=== PATIENT | female | born 1935 | race Caucasian/White ===

== ENCOUNTER 2017-10-07 20:28 | Emergency (ER) | payer MEDICARE, BC ==
[2017-10-07 20:47] VITALS: BP 184/77; PULSE 83; RESP 18; TEMP 97.9
--- NOTE | 2017-10-07 21:12 | ED ---
General Adult HPI - General Chief complaint: GI Bleed Stated complaint: Rectal Bleeding Time Seen by Provider: 10/07/17 20:53 Source: patient, family, RN notes reviewed Mode of arrival: ambulatory Limitations: no limitations - History of Present Illness Initial comments: 82-year-old female presents for evaluation of rectal bleeding. Patient was in the shower, noticed some bright red blood several hours prior to presentation. She has remote history of colitis proximally 20 years ago. Denies any abdominal pain. She has had normal bowel movements today. Bleeding was spontaneous. Denies any pain complaints. Patient is not on anticoagulants. - Related Data Home Medications Medication Instructions Recorded Confirmed Levothyroxine Sodium [Synthroid] 150 mcg PO MOWETHFR 10/07/17 10/07/17 Ranitidine HCl [Zantac] 150 mg PO BID 10/07/17 10/07/17 Previous Rx's Medication Instructions Recorded Phenyleph/Mineral Oil/Petrolat 1 applic RECTAL BID #30 gm 10/07/17 [Preparation H Ointment] Polyethylene Glycol 3350 [Miralax] 17 gm PO DAILY #527 gm 10/07/17 Allergies Allergy/AdvReac Type Severity Reaction Status Date / Time No Known Allergies Allergy Verified 10/07/17 21:15 Review of Systems ROS Statement: Those systems with pertinent positive or pertinent negative responses have been documented in the HPI. ROS Other: All systems not noted in ROS Statement are negative. Past Medical History Past Medical History: GERD/Reflux, Hypertension, Thyroid Disorder Additional Past Medical History / Comment(s): colitis History of Any Multi-Drug Resistant Organisms: None Reported Past Surgical History: Cholecystectomy Past Psychological History: No Psychological Hx Reported Smoking Status: Never smoker Past Alcohol Use History: None Reported Past Drug Use History: None Reported General Exam Limitations: no limitations General appearance: alert, in no apparent distress Head exam: Present: atraumatic, normocephalic Eye exam: Present: normal appearance, PERRL ENT exam: Present: normal exam Neck exam: Present: normal inspection. Absent: tenderness, meningismus Respiratory exam: Present: normal lung sounds bilaterally. Absent: respiratory distress, wheezes Cardiovascular Exam: Present: regular rate, normal rhythm GI/Abdominal exam: Present: soft. Absent: distended, tenderness, guarding Rectal exam: Present: hemorrhoids (1 cm internal hemorrhoid at 9:00, no active bleeding). Absent: black stool, bloody stool Extremities exam: Present: normal inspection, full ROM. Absent: tenderness Back exam: Present: normal inspection, full ROM. Absent: tenderness Neurological exam: Present: alert, oriented X3. Absent: CN II-XII intact Psychiatric exam: Present: normal affect, normal mood Skin exam: Present: warm, dry, intact Course Vital Signs 10/07/17 10/07/17 20:42 21:10 Temperature 97.9 F Pulse Rate 83 Respiratory 18 Rate Blood Pressure 184/77 O2 Sat by Pulse 97 98 Oximetry Medical Decision Making - Medical Decision Making 82-year-old female presenting with bright red rectal bleeding. Patient's vital signs are stable, she is well-appearing, abdomen soft nontender nondistended, on rectal exam shows a 1 cm internal hemorrhoid at 9:00, no active bleeding. Surface is friable. She will be prescribed usual treatment. She will follow- up with her primary care physician. Disposition Clinical Impression: Hemorrhoids Disposition: HOME SELF-CARE Condition: Good Instructions: Hemorrhoids (ED) Prescriptions: Phenyleph/Mineral Oil/Petrolat [Preparation H Ointment] 1 applic RECTAL BID #30 gm Polyethylene Glycol 3350 [Miralax] 17 gm PO DAILY #527 gm Referrals: Lj Sandra MD [Primary Care Provider] - 1-2 days Time of Disposition: 21:11
[2017-10-07] MEDS ORDERED: ACETAMINOPHEN TAB 500 MG TAB PO STA (21:18)
== END 2017-10-07 21:20 | disposition home or self-care (01) ==
LOC: EC 20:28
DX: K64.8 Other hemorrhoids (principal); K21.9 Gastro-esophageal reflux disease without esophagitis; E07.9 Disorder of thyroid, unspecified; Z79.899 Other long term (current) drug therapy; Z90.49 Acquired absence of other specified parts of digestive tract
CPT/HCPCS: 99284

== ENCOUNTER 2018-01-23 20:27 | Emergency (ER) | payer MEDICARE, BC ==
[2018-01-23 20:41] VITALS: RESP 16
[2018-01-23] MEDS ORDERED: KETOROLAC 30 MG/ML 1 ML VIAL IVP STA (21:42)
[2018-01-23] MEDS ORDERED: LIDOCAINE VISCOUS 2% 15 ML CUP MUCOUS MEM STA (21:42)
--- NOTE | 2018-01-23 21:51 | ED ---
General Adult HPI - General Chief complaint: Abdominal Pain Stated complaint: hemmeroids/no bowel movement Time Seen by Provider: 01/23/18 21:23 Source: patient Mode of arrival: ambulatory Limitations: no limitations - History of Present Illness Initial comments: This patient is an 82-year-old woman who presents with complaint that she is having a flareup of hemorrhoids and this is leading her to have difficulty passing stool. Patient states that she has long intermittent history of hemorrhoids, and they last flared up with some bleeding in September. She states they seem to have recurred probably little over a week ago. She states that this led her to try to not have bowel movements and she has been feeling constipated over the past 5 days. She did pass some very liquid stool here but states she still has urge to defecate but there is pain if she attempts to. No bleeding. No abdominal pain. -: days(s) Quality: sharp Consistency: intermittent Improves with: none Worsens with: other (Bowel movement) Associated Symptoms: denies other symptoms Treatments Prior to Arrival: none - Related Data Home Medications Medication Instructions Recorded Confirmed Ranitidine HCl [Zantac] 150 mg PO BID 10/07/17 01/23/18 Albuterol Sulfate [Proventil Hfa] 1 - 2 puff INHALATION RT-Q6H PRN 01/23/1804/05 Docusate [Colace] 100 mg PO DAILY 01/23/18 01/23/18 Hydrocortisone Pr Cream 1 applic RECTAL BID PRN 01/23/18 01/23/18 [Proctosol-Hc 2.5%] Levothyroxine Sodium [Synthroid] 25 mcg PO MOWETHFR 01/23/18 01/23/18 Magnesium Hydroxide [Milk of 2,400 mg PO ONCE PRN 01/23/18 01/23/18 Magnesia Concentrate] Rosuvastatin Calcium [Crestor] 5 mg PO DAILY 01/23/18 01/23/18 Allergies Allergy/AdvReac Type Severity Reaction Status Date / Time No Known Allergies Allergy Verified 01/23/18 21:05 Review of Systems ROS Statement: Those systems with pertinent positive or pertinent negative responses have been documented in the HPI. ROS Other: All systems not noted in ROS Statement are negative. Constitutional: Denies: fever, chills Respiratory: Denies: cough, dyspnea Cardiovascular: Denies: chest pain, palpitations, edema Gastrointestinal: Reports: diarrhea, constipation, other (Hemorrhoids). Denies : abdominal pain, nausea, vomiting Genitourinary: Denies: dysuria, hematuria Musculoskeletal: Denies: back pain Skin: Denies: rash Neurological: Denies: headache, weakness, numbness Hematological/Lymphatic: Denies: easy bleeding Past Medical History Past Medical History: GERD/Reflux, Hypertension, Thyroid Disorder Additional Past Medical History / Comment(s): colitis History of Any Multi-Drug Resistant Organisms: None Reported Past Surgical History: Cholecystectomy Past Psychological History: No Psychological Hx Reported Smoking Status: Never smoker Past Alcohol Use History: None Reported Past Drug Use History: None Reported General Exam Limitations: no limitations General appearance: alert, in no apparent distress Head exam: Present: atraumatic, normocephalic Eye exam: Present: normal appearance ENT exam: Present: normal oropharynx Respiratory exam: Present: normal lung sounds bilaterally. Absent: respiratory distress, wheezes, rales, rhonchi, stridor Cardiovascular Exam: Present: regular rate, normal rhythm, normal heart sounds. Absent: systolic murmur, diastolic murmur, rubs, gallop GI/Abdominal exam: Present: soft. Absent: distended, tenderness, guarding, rebound, rigid, mass, hernia Rectal exam: Present: fecal impaction, tenderness, other (Patient has one external hemorrhoid, but she does have internal hemorrhoids and then there is fecal impaction). Absent: normal inspection, black stool, bloody stool Extremities exam: Absent: pedal edema, calf tenderness Back exam: Present: normal inspection. Absent: CVA tenderness (R), CVA tenderness (L) Skin exam: Present: warm, dry, intact, normal color. Absent: rash Course Vital Signs 01/23/18 20:37 Temperature 98.6 F Pulse Rate 98 Respiratory 16 Rate Blood Pressure 119/58 O2 Sat by Pulse 96 Oximetry Disposition Clinical Impression: Hemorrhoids, Constipation Disposition: HOME SELF-CARE Condition: Good Instructions: Hemorrhoids (ED), Constipation (ED) Is patient prescribed a controlled substance at d/c from ED?: No Referrals: Lj Sandra MD [Primary Care Provider] - 1-2 days
[2018-01-23] MEDS ORDERED: MAGNESIUM CITRATE 296 ML BOTTLE PO ONE (23:09)
[2018-01-23 23:25] VITALS: BP 122/60; PULSE 88; TEMP 99.8
== END 2018-01-23 23:26 | disposition home or self-care (01) ==
LOC: EC 20:27
DX: K64.8 Other hemorrhoids (principal); K64.4 Residual hemorrhoidal skin tags; K59.00 Constipation, unspecified; K21.9 Gastro-esophageal reflux disease without esophagitis; I10 Essential (primary) hypertension; E07.9 Disorder of thyroid, unspecified; Z90.49 Acquired absence of other specified parts of digestive tract; Z79.899 Other long term (current) drug therapy
CPT/HCPCS: 99283; 96374; J1885

== ENCOUNTER → 2018-05-09 | Day surgery (SDC) | payer MEDICARE, BC ==
[2018-05-05 08:43] VITALS: BMI 27.9
[~2018-05-09] MED LIST: LACTATED RINGERS 1,000 ML IV SCH; LIDOCAINE 1% 20 ML VIAL (10MG/ML) FOR IV START INTRADERMA PRN; LIDOCAINE 1% INJ 10MG/ML (20 ML MDV) ONE; MIDAZOLAM 2 MG/2 ML VIAL IV PRN; NALOXONE 0.4 MG/ML 1 ML VIAL IV PRN; PROPOFOL 10 MG/ML 20 ML VIAL IV ONE
[2018-05-09 07:00] VITALS: TEMP 98.3
--- NOTE | 2018-05-09 08:13 | P.OP ---
Date of Procedure: 05/09/18 Preoperative Diagnosis: Diarrhea and constipation Postoperative Diagnosis: Diarrhea and constipation Diverticulosis Internal hemorrhoids Procedure(s) Performed: Colonoscopy Surgeon: Nehemias Victoria Pathology: none sent Condition: stable Disposition: same day Indications for Procedure: 82-year-old female presented to the surgery clinic with recent bowel changes including loose stool and constipation. Her last colonoscopy was 20 years ago. She presents today for colonoscopy. Operative Findings: Diverticulosis scattered throughout the colon Internal hemorrhoids Description of Procedure: The patient was brought into the endoscopy suite. She was placed in left lateral cutis position and adequate sedation was achieved using conscious sedation. A digital rectal exam was performed and internal hemorrhoids were palpated. An endoscope was then placed in the rectum and advanced to the cecum as identified by landmarks including the appendiceal orifice and ileocecal valve. The prep was good. The colonoscope was then slowly withdrawn, examining for any mucosal abnormalities. The cecum, ascending, transverse, descending and sigmoid colon were visualized adequately. There was notable diverticulosis scattered throughout the colon. Most of the diverticuli were noted in the sigmoid colon. There were no obvious inflammatory changes or polypoid lesions throughout the colon. There is no obvious source of bleeding. Retroflexion was performed in the rectum and internal hemorrhoids were visible. Excess air was removed, the colonoscope was withdrawn and the procedure terminated. The patient was then transferred to the postanesthesia recovery unit in stable condition. At this point, with the patient's age, there would only be symptomatic necessity for future colonoscopy.
[2018-05-09 08:15] VITALS: RESP 16
[2018-05-09 08:23] VITALS: BP 139/76; PULSE 75
== END ==
LOC: ORWHC2ENDO 06:30
PROVIDERS: ATTEND Surgery
DX: K57.30 Diverticulosis of large intestine without perforation or abscess without bleeding (principal); K64.8 Other hemorrhoids; K52.9 Noninfective gastroenteritis and colitis, unspecified; E78.5 Hyperlipidemia, unspecified; J45.909 Unspecified asthma, uncomplicated; E07.9 Disorder of thyroid, unspecified; K21.9 Gastro-esophageal reflux disease without esophagitis; Z79.890 Hormone replacement therapy; Z79.899 Other long term (current) drug therapy
CPT/HCPCS: 45378; J2001; J2704

== ENCOUNTER 2019-11-26 19:36 | Observation (INO) | payer MEDICARE, BC ==
[2019-11-26] MEDS ORDERED: ASPIRIN 81 MG PO STA (19:58)
[2019-11-26] MEDS ORDERED: NITROGLYCERIN OINT 1 INCH/GM PACKET TOPICAL STA (19:58)
[2019-11-26 20:23] LABS: Basophils # (A) 0.1 k/uL (0-0.2); Basophils % (A) 1 %; Eosinophils # (A) 0.2 k/uL (0-0.7); Eosinophils % (A) 4 %; HCT 38.9 % (34.0-46.0); HGB 12.9 gm/dL (11.4-16.0); Lymphocytes # (A) 1.2 k/uL (1.0-4.8); Lymphocytes % (A) 24 %; MCH 30.6 pg (25.0-35.0); MCHC 33.1 g/dL (31.0-37.0); MCV 92.4 fL (80.0-100.0); Mean Platelet Volume 7.6; Monocytes # (A) 0.3 k/uL (0-1.0); Monocytes % (A) 6 %; Neutrophils # (A) 3.3 k/uL (1.3-7.7); Neutrophils % (A) 63 %; Platelet Count 194 k/uL (150-450); RBC 4.21 m/uL (3.80-5.40); RDW 13.6 % (11.5-15.5); WBC 5.2 k/uL (3.8-10.6)
[2019-11-26 20:32] LABS: INR 0.9 (<1.2)
[2019-11-26 20:33] LABS: Partial Thromboplastin Time 22.8 sec (22.0-30.0); Prothrombin Time 9.7 sec (9.0-12.0)
[2019-11-26 20:36] LABS: Albumin 3.9 g/dL (3.5-5.0); Calcium 9.3 mg/dL (8.4-10.2); Magnesium 2.3 mg/dL (1.6-2.3); Potassium 4.3 mmol/L (3.5-5.1); Total Bilirubin 0.4 mg/dL (0.2-1.3); Total Protein 6.5 g/dL (6.3-8.2)
--- NOTE | 2019-11-26 21:05 | XR ---
EXAMINATION TYPE: XR chest 2V DATE OF EXAM: 11/26/2019 COMPARISON: Prior chest x-ray September 20, 2012. HISTORY: Increased chest pain and heartburn for 2 days. TECHNIQUE: Frontal and lateral views of the chest are obtained. FINDINGS: There is chronic parenchymal changes bilaterally without suspicious new focal air space op acity or pneumothorax seen. The cardiac silhouette size is enlarged with small to tiny bilateral ple ural effusions seen best on lateral x-ray. The osseous structures remain demineralized. IMPRESSION: Cardiomegaly with new small to tiny bilateral pleural effusions and perhaps mild interst itial edema, correlate for mild CHF exacerbation.
[2019-11-26] MEDS ORDERED: NITROGLYCERIN SL TABS 0.4 MG TAB SUBLINGUAL PRN (22:12)
--- NOTE | 2019-11-26 22:12 | ED ---
Chest Pain HPI - General Chief Complaint: Chest Pain Stated Complaint: chest pains Time Seen by Provider: 11/26/19 19:49 Source: patient Mode of arrival: wheelchair Limitations: no limitations - History of Present Illness Initial Comments: This 84-year-old white female presents with a complaint of some chest pain. She states that she's had it intermittently over the past couple of days. This is a midsternal "pain" that is hard for her to describe. It is associated with some shortness of breath as well although she does have a history of asthma. She denies any leg pain or swelling or history of DVT or PE. She denies any known previous cardiac disease. She has never had a stress test or heart catheterization in the past. She states that her brother and the was today so she was emotionally upset as well. The patient may be somewhat worse with certain movements. No other complaints or modifying factors. - Related Data Home Medications Medication Instructions Recorded Confirmed Ranitidine HCl [Zantac] 150 mg PO BID 10/07/17 05/09/18 Albuterol Sulfate [Proventil Hfa] 1 - 2 puff INHALATION RT-Q6H PRN 01/23/18 05/09/18 Levothyroxine Sodium [Synthroid] 25 mcg PO MOWETHFR 01/23/18 05/09/18 Rosuvastatin Calcium [Crestor] 5 mg PO DAILY 01/23/18 05/09/18 Lactulose 10 gm PO DAILY 05/05/18 05/09/18 Montelukast [Singulair] 10 mg PO DAILY 05/05/18 05/09/18 Allergies Allergy/AdvReac Type Severity Reaction Status Date / Time prednisone Allergy Rapid Verified 11/26/19 20:38 Heart Rate Review of Systems ROS Statement: Those systems with pertinent positive or pertinent negative responses have been documented in the HPI. ROS Other: All systems not noted in ROS Statement are negative. Past Medical History Past Medical History: Asthma, GERD/Reflux, Hyperlipidemia, Thyroid Disorder Additional Past Medical History / Comment(s): colitis History of Any Multi-Drug Resistant Organisms: None Reported Past Surgical History: Appendectomy, Cholecystectomy, Tonsillectomy Additional Past Surgical History / Comment(s): Colonoscopy Past Psychological History: No Psychological Hx Reported Smoking Status: Never smoker Past Alcohol Use History: None Reported Past Drug Use History: None Reported - Past Family History Mother Family Medical History: No Reported History General Exam - General Exam Comments Initial Comments: GENERAL: The patient is well nourished and well hydrated. VITAL SIGNS: Heart rate, blood pressure, respiratory rate reviewed as recorded in nurse's notes. EYES: Pupils are round and reactive. Extraocular movements are intact. No conjunctival / lid redness or swelling. ENT: No external evidence of injury, swelling, or ecchymosis. Airway is patent. Throat is clear. NECK: Nontender. No swelling or evidence of injury. No subcutaneous emphysema. Trachea is midline. No thyroid mass. HEART: Regular rate and rhythm. Good peripheral pulses. LUNGS/CHEST: Breath sounds clear and equal bilaterally. No rales, rhonchi, or wheezes. No ecchymosis, subcutaneous emphysema, or tenderness. ABDOMEN: Abdomen soft without tenderness. No palpable masses or organomegaly. No peritoneal signs. No abdominal wall swelling or ecchymosis. EXTREMITIES: No extremity tenderness. Normal muscle tone and function. No thoracolumbar tenderness. NEUROLOGIC: Sensation is grossly intact. Cranial nerve exam reveals face is symmetrical, tongue is midline, speech is clear. SKIN: No abrasions or ecchymosis is noted. No induration or masses noted. PSYCHIATRIC: Alert and oriented. Appropriate behavior and judgment. Limitations: no limitations Course Vital Signs 11/26/19 11/26/19 11/26/19 19:40 20:10 20:12 Temperature 98.1 F Pulse Rate 91 84 Pulse Rate [ 18 L Pulse Oximetery ] Respiratory 18 18 Rate Blood Pressure 178/98 177/89 O2 Sat by Pulse 98 98 Oximetry 11/26/19 21:00 Temperature Pulse Rate 89 Pulse Rate [ Pulse Oximetery ] Respiratory 17 Rate Blood Pressure 174/86 O2 Sat by Pulse 97 Oximetry Chest Pain MDM - MDM The patient was seen and examined. All diagnostics were reviewed. The patient had a EKG which shows a normal sinus rhythm at a rate of 88. There is no acute ST-T wave changes identified. The NC intervals 192, QRS duration is 76, and the QTc interval is 447. The patient did receive aspirin as well as Nitropaste. She is in no distress on recheck. The laboratory evaluation was all essentially within normal limits. The chest x-ray shows cardiomegaly with possible interstitial prominence and slight effusions potentially related to some mild congestive heart failure. The case is discussed with Dr. Dockery and he does agree with admission and cardiology evaluation. It is felt as though she would require admission to rule out the possibility of acute coronary syndrome. Disposition Clinical Impression: Chest pain, Unstable angina, Dyspnea, Hypertension, Cardiomegaly Disposition: ADMITTED IP TO THIS HOSP Condition: Good Is patient prescribed a controlled substance at d/c from ED?: No Time of Disposition: 22:12 Decision Date: 11/26/19 Decision Time: 22:12
[2019-11-26] MEDS: METOPROLOL TARTRATE 25 MG TAB PO SCH (23:00)
[2019-11-26] MEDS: ALBUTEROL NEBULIZED 2.5 MG/3 ML INHALATION SCH (23:20)
--- NOTE | 2019-11-26 23:32 | P.HPIM ---
History of Present Illness H&P Date: 11/26/19 The patient is an 84-year-old female with a PMH of hypothyroidism, and mild intermittent asthma who presented to the ED with complaints of sharp substernal chest discomfort ongoing for the past 1-2 days. The patient notes that the pain started insidiously, with tenderness to palpation, worsened with certain movements of the chest and deep inspiration, 5 out of 10, nonradiating, with no associated short of breath, nausea, vomiting, diaphoresis, palpitations. She reports never having such pain in the past. The pain is nonexertional, with no clear alleviating factors. She otherwise denied any additional complaints. She denied orthopnea, PND, fever, chills, cough, diarrhea, lower extremity swelling, lower extremity pain. She underwent an extensive evaluation in the emergency room with chest x-ray showing cardiomegaly with new small to tiny bilateral pleural effusions and mild interstitial edema. EKG had revealed sinus rhythm with APCs, with T-wave inversions in leads V1, and V5, with no additional ST/T- wave changes noted. Laboratory evaluation revealed a troponin level of less th an 0.012, BNP 124, WBC count 5.2, hemoglobin 12.9, sodium 138, potassium 4.3, BUN 16, creatinine 0.89, and a glucose of 109. Patient is being admitted to the medicine service for further evaluation of chest pain. Review of Systems Pertinent positives and negatives as discussed in HPI, a complete review of systems was performed and all other systems are negative. Past Medical History Past Medical History: Asthma, GERD/Reflux, Hyperlipidemia, Thyroid Disorder Additional Past Medical History / Comment(s): colitis History of Any Multi-Drug Resistant Organisms: None Reported Past Surgical History: Appendectomy, Cholecystectomy, Tonsillectomy Additional Past Surgical History / Comment(s): Colonoscopy Past Psychological History: No Psychological Hx Reported Smoking Status: Never smoker Past Alcohol Use History: None Reported Past Drug Use History: None Reported - Past Family History Mother Family Medical History: No Reported History Medications and Allergies Home Medications Medication Instructions Recorded Confirmed Type Albuterol Sulfate [Proventil Hfa] 1 - 2 puff INHALATION RT-Q6H PRN 01/23/18 11/26/19 History Levothyroxine Sodium [Synthroid] 25 mcg PO MOWETHFR 01/23/18 11/26/19 History Rosuvastatin Calcium [Crestor] 5 mg PO DAILY@1500 01/23/18 11/26/19 History Carboxymethylcellulose Sodium 1 drop BOTH EYES DAILY PRN 11/26/19 11/26/19 History [Refresh Tears] Famotidine [Pepcid] 20 mg PO BID 11/26/19 11/26/19 History Sennosides [Senna] 17.2 mg PO Q72H PRN 11/26/19 11/26/19 History Vit C/E/Zn/Coppr/Lutein/Zeaxan 1 cap PO DAILY 11/26/19 11/26/19 History [Preservision Areds 2 Softgel] Allergies Allergy/AdvReac Type Severity Reaction Status Date / Time prednisone AdvReac Rapid Verified 11/26/19 22:33 Heart Rate Physical Exam Vitals: Vital Signs Temp Pulse Pulse Resp BP Pulse Ox 11/26/19 23:21 80 11/26/19 22:36 78 18 129/71 96 11/26/19 21:00 89 17 174/86 97 11/26/19 20:12 18 L 11/26/19 20:10 84 18 177/89 98 11/26/19 19:40 98.1 F 91 18 178/98 98 Intake and Output 11/26/19 11/26/19 11/27/19 14:59 22:59 06:59 Intake Total 10 Balance 10 Intake: IV 10 Invasive Line 1 10 Other: Weight 63.503 kg General: non toxic, no distress, appears at stated age, normal weight Derm: no unusual rashes/lesions no unusual ecchymoses, warm, dry Head: atraumatic, normocephalic, symmetric Eyes: EOMI, no lid lag, anicteric sclera, pupils equal round reactive to light ENT: Nose and ears atraumatic, no thrush, no pharyngeal erythema Neck: No thyromegaly, no cervical lymphadenopathy, trachea midline, supple Mouth: no lip lesion, mucus membranes moist Cardiovascular: S1S2 reg, no murmur, positive posterior tibial pulse bilateral, no edema, capillary refill less than 2 seconds, chest wall tenderness to palpation at the level of the sternum Lungs: CTA bilateral, no rhonchi, no rales , no accessory muscle use Abdominal: soft, nontender to palpation, no guarding, no appreciable organomegaly, normal bowel sounds Ext: no gross muscle atrophy, muscle strength 5 out of 5 in all 4 extremities grossly, no contractures, Neuro: CN II-XI grossly intact, light touch intact all 4 extremities, finger to nose within normal limits, Psych: Alert, oriented, appropriate affect Results CBC & Chem 7: 11/26/19 20:13 11/26/19 20:13 Labs: Abnormal Lab Results - Last 24 Hours (Table) 11/26/19 Range/Units 20:13 Glucose 109 H (74-99) mg/dL Assessment and Plan Plan: Chest pain, rule out ACS -Possible costochondritis -Cardiology consulted -Echocardiogram -Cardiac monitoring -Trend troponin Chronic conditions: Mild intermittent asthma, hypothyroidism -Continue with home meds DVT prophylaxis -Loenox The patient is admitted with an anticipated less than 2 midnight stay for evaluation of chest pain CODE STATUS: No Code Discussed with: Patient Anticipated discharge date: 1-[address]: Home A total of 30 minutes was spent on the care of this complex patient more than 50% of the time was spent in counseling and care coordination.
[2019-11-26] MEDS ORDERED: SENNOSIDES 8.6 MG TAB PO PRN (23:35)
[2019-11-27] MEDS: NITROGLYCERIN OINT 1 INCH/GM PACKET TOPICAL SCH ×2 (00:03→05:38)
[2019-11-27 03:55] VITALS: RESP 16
[2019-11-27] MEDS: ALBUTEROL NEBULIZED 2.5 MG/3 ML INHALATION SCH ×2 (07:30→11:04)
[2019-11-27 08:43] LABS: Cholesterol 141 mg/dL (<200); HDL Cholesterol 46 mg/dL (40-60); LDL Cholesterol,Calculated 57 mg/dL (0-99); Triglycerides 190 mg/dL (<150)
[2019-11-27] MEDS ORDERED: ENOXAPARIN 40 MG/0.4 ML SYRINGE SQ SCH (09:00)
[2019-11-27] MEDS ORDERED: ASPIRIN 325 MG TAB PO SCH (09:00)
[2019-11-27 09:26] VITALS: BP 104/52; TEMP 96.9
[2019-11-27] MEDS: METOPROLOL TARTRATE 25 MG TAB PO SCH (09:43)
--- NOTE | 2019-11-27 10:40 | ECHOF ---
Referral Reason:cp MEASUREMENTS -------- HEIGHT: 152.4 cm WEIGHT: 64.9 kg BP: 96/46 RVIDd: 2.7 cm (< 3.3) IVSd: 1.3 cm (0.6 - 1.1) LVIDd: 3.9 cm (3.9 - 5.3) LVPWd: 1.2 cm (0.6 - 1.1) IVSs: 1.6 cm LVIDs: 2.5 cm LVPWs: 1.8 cm LA Diam: 3.5 cm (2.7 - 3.8) LAESV Index (A-L): 17.23 ml/m Ao Diam: 3.1 cm (2.0 - 3.7) AV Cusp: 2.1 cm (1.5 - 2.6) MV EXCURSION: 17.614 mm (> 18.000) MV EF SLOPE: 203 mm/s (70 - 150) EPSS: 0.3 cm MV E Allan: 0.99 m/s MV DecT: 133 ms MV A Allan: 1.07 m/s MV E/A Ratio: 0.92 AR PHT: 368 ms RAP: 5.00 mmHg RVSP: 25.25 mmHg TAPSE: 18.83 mm FINDINGS -------- Sinus rhythm. This was a technically good study. The left ventricular size is normal. There is mild concentric left ventricular hypertrophy. Overa ll left ventricular systolic function is normal with, an EF between 60 - 65 %. The right ventricle is normal in size. Normal LA size by volume 22+/-6 ml/m2. The right atrium is normal in size. Interatrial and interventricular septum intact. There is mild aortic valve sclerosis. There is mild aortic regurgitation. Mild mitral annular calcification present. No mitral regurgitation. Mild tricuspid regurgitation present. Right ventricular systolic pressure is normal at < 35 mmHg. Trace/mild (physiologic) pulmonic regurgitation. The aortic root size is normal. Normal inferior vena cava with normal inspiratory collapse consistent with estimated right atrial pre ssure of 5 mmHg. There is no pericardial effusion. CONCLUSIONS -------- 1. Sinus rhythm. 2. This was a technically good study. 3. The left ventricular size is normal. 4. There is mild concentric left ventricular hypertrophy. 5. Overall left ventricular systolic function is normal with, an EF between 60 - 65 %. 6. The right ventricle is normal in size. 7. Normal LA size by volume 22+/-6 ml/m2. 8. The right atrium is normal in size. 9. Interatrial and interventricular septum intact. 10. There is mild aortic valve sclerosis. 11. There is mild aortic regurgitation. 12. Mild mitral annular calcification present. 13. No mitral regurgitation. 14. Mild tricuspid regurgitation present. 15. Right ventricular systolic pressure is normal at < 35 mmHg. 16. Trace/mild (physiologic) pulmonic regurgitation. 17. The aortic root size is normal. 18. Normal inferior vena cava with normal inspiratory collapse consistent with estimated right atrial pressure of 5 mmHg. 19. There is no pericardial effusion. METAPHYSICS TEACHER: Olga Bernabe RDCS
[2019-11-27 11:17] VITALS: PULSE 76
--- NOTE | 2019-11-27 13:20 | P.CRDCN ---
History of Present Illness History of present illness: HISTORY OF PRESENTING ILLNESS This is a pleasant 84-year-old female past medical history significant for asthma, dyslipidemia and GERD. She denies prior history of coronary artery disease and does not follow in the office with a jack of all trades. We have been asked to see in consultation for chest pain. She presented to the ER with symptoms of pain in the mid-sternal region. She states the pain is sharp and intense when it happens. It is exacerbated by cough. She has been dealing with significant amount of stress in the last week due to the loss of her brother. She denies exertional chest pain. No significant shortness of breath. No dizziness, palpitations, nausea, vomiting or diaphoresis. DIAGNOSTICS EKG reveals sinus mechanism with first degree AV block with PAC's. Chest xray reveals cardiomegaly with small b/l pleural effusions and mild interstitial edema. Laboratory reviewed, CBC unremarkable, sodium 138, potassium 4.3, creatinine 0.89, magnesium 2.3, cardiac enzymes negative x3, NTproBNP 124, LDL 57, HDL 46. Current cardiac medications include aspirin 81 mg daily and rosuvastatin 5 mg daily. REVIEW OF SYSTEMS At the time of my exam: CONSTITUTIONAL: Denies fever or chills. CARDIOVASCULAR: Complains of chest pain while coughing. Denies shortness of breath, orthopnea, PND or palpitations. RESPIRATORY: Complains of cough. GASTROINTESTINAL: Denies abdominal pain, diarrhea, constipation, nausea or vomiting. MUSCULOSKELETAL: Denies myalgias. NEUROLOGIC: Denies numbness, tingling or weakness. ENDOCRINE: Denies fatigue, weight change, polydipsia or polyurina. GENITOURINARY: Denies burning, hematuria or urgency with micturation. HEMATOLOGIC: Denies history of anemia or bleeding. PHYSICAL EXAMINATION Blood pressure 104/52 heart rate 76 afebrile and maintaining oxygen saturation on room air. CONSTITUTIONAL: No apparent distress. HEENT: Head is normocephalic. Pupils are equal, round. Sclerae anicteric. Mucous membranes of the mouth are moist. No JVD. No carotid bruit. CHEST EXAMINATION: Lungs are clear to auscultation. Positive chest wall tendern ess is noted on palpation, coughing and with deep breathing. HEART EXAMINATION: Regular rate and rhythm. S1, S2 heard. No murmurs, gallops or rub. ABDOMEN: Soft, nontender. Positive bowel sounds. EXTREMITIES: 2+ peripheral pulses, no lower extremity edema and no calf tenderness. NEUROLOGIC EXAMINATION: Patient is awake, alert and oriented x3. ASSESSMENT Chest pain, pleuritic. An acute coronary event has been ruled out. Due to musculoskeletal strain from coughing. Dyslipidemia PLAN Obtain 2D echocardiogram and doppler study to assess cardiac structure and function. Increase activity and ambulation in the halls. No further cardiac testing at this time. Follow up in the office with Dr. Coleman in 2-3 weeks, possible outpatient stress test when cough has subsided. Thank you kindly for this consultation. Nurse Practitioner note has been reviewed, I agree with a documented findings and plan of care. Patient was seen and examined. Past Medical History Past Medical History: Asthma, GERD/Reflux, Hyperlipidemia, Thyroid Disorder Additional Past Medical History / Comment(s): colitis; macular degeneration History of Any Multi-Drug Resistant Organisms: None Reported Past Surgical History: Appendectomy, Cholecystectomy, Tonsillectomy Additional Past Surgical History / Comment(s): Colonoscopy Past Psychological History: No Psychological Hx Reported Smoking Status: Never smoker Past Alcohol Use History: None Reported Past Drug Use History: None Reported - Past Family History Mother Family Medical History: No Reported History Medications and Allergies Home Medications Medication Instructions Recorded Confirmed Type Albuterol Sulfate [Proventil Hfa] 1 - 2 puff INHALATION RT-Q6H PRN 01/23/18 11/26/19 History Levothyroxine Sodium [Synthroid] 25 mcg PO MOWETHFR 01/23/18 11/26/19 History Rosuvastatin Calcium [Crestor] 5 mg PO DAILY@1500 01/23/18 11/26/19 History Carboxymethylcellulose Sodium 1 drop BOTH EYES DAILY PRN 11/26/19 11/26/19 History [Refresh Tears] Famotidine [Pepcid] 20 mg PO BID 11/26/19 11/26/19 History Sennosides [Senna] 17.2 mg PO Q72H PRN 11/26/19 11/26/19 History Vit C/E/Zn/Coppr/Lutein/Zeaxan 1 cap PO DAILY 11/26/19 11/26/19 History [Preservision Areds 2 Softgel] Aspirin [Adult Low Dose Aspirin EC] 81 mg PO DAILY #30 tablet. 11/27/19 Rx Allergies Allergy/AdvReac Type Severity Reaction Status Date / Time prednisone AdvReac Rapid Verified 11/26/19 22:33 Heart Rate Physical Exam Vitals: Vital Signs Temp Pulse Pulse Resp BP BP Pulse Ox 11/27/19 11:16 76 11/27/19 11:06 72 11/27/19 08:25 96.9 F L 88 16 104/52 93 L 11/27/19 07:43 80 11/27/19 07:33 76 11/27/19 03:52 97.7 F 62 16 96/46 96 11/27/19 00:30 98.1 F 79 18 133/63 97 11/26/19 23:30 80 11/26/19 23:21 80 11/26/19 22:36 78 18 129/71 96 11/26/19 21:00 89 17 174/86 97 11/26/19 20:12 18 L 11/26/19 20:10 84 18 177/89 98 11/26/19 19:40 98.1 F 91 18 178/98 98 Intake and Output 11/26/19 11/27/19 11/27/19 22:59 06:59 14:59 Intake Total 10 Balance 10 Intake: IV 10 Invasive Line 1 10 Other: # Voids 1 Weight 63.503 kg 65 kg Results 11/26/19 20:13 11/26/19 20:13 Cardiac Enzymes 11/26/19 11/26/19 11/27/19 Range/Units 20:13 20:13 01:56 AST 22 (14-36) U/L Troponin I <0.012 <0.012 (0.000-0.034) ng/mL 11/27/19 Range/Units 07:14 AST (14-36) U/L Troponin I <0.012 (0.000-0.034) ng/mL Coagulation 11/26/19 Range/Units 20:13 PT 9.7 (9.0-12.0) sec APTT 22.8 (22.0-30.0) sec Lipids 11/27/19 Range/Units 07:14 Triglycerides 190 H (<150) mg/dL Cholesterol 141 (<200) mg/dL HDL Cholesterol 46 (40-60) mg/dL CBC 11/26/19 Range/Units 20:13 WBC 5.2 (3.8-10.6) k/uL RBC 4.21 (3.80-5.40) m/uL Hgb 12.9 (11.4-16.0) gm/dL Hct 38.9 (34.0-46.0) % Plt Count 194 (150-450) k/uL Comprehensive Metabolic Panel 11/26/19 Range/Units 20:13 Sodium 138 (137-145) mmol/L Potassium 4.3 (3.5-5.1) mmol/L Chloride 107 (98-107) mmol/L Carbon Dioxide 23 (22-30) mmol/L BUN 16 (7-17) mg/dL Creatinine 0.89 (0.52-1.04) mg/dL Glucose 109 H (74-99) mg/dL Calcium 9.3 (8.4-10.2) mg/dL AST 22 (14-36) U/L ALT 15 (4-34) U/L Alkaline Phosphatase 72 (38-126) U/L Total Protein 6.5 (6.3-8.2) g/dL Albumin 3.9 (3.5-5.0) g/dL Current Medications Generic Name Dose Route Start Last Admin Trade Name Freq PRN Reason Stop Dose Admin Albuterol Sulfate 2.5 mg 11/26/19 22:15 11/27/19 11:04 Ventolin Nebulized INHALATION 2.5 mg QID [facility] Administration Aspirin 325 mg 11/27/19 09:00 11/27/19 09:43 Aspirin PO 325 mg DAILY [facility] Administration Atorvastatin Calcium 10 mg 11/27/19 15:00 Lipitor PO DAILY@1500 [facility] Enoxaparin Sodium 40 mg 11/27/19 09:00 11/27/19 09:43 Lovenox SQ 40 mg DAILY [facility] Administration Levothyroxine Sodium 25 mcg 11/28/19 06:30 Synthroid PO [id number]@[id number] [facility] Metoprolol Tartrate 25 mg 11/26/19 22:15 11/27/19 09:43 Lopressor PO Not Given BID [facility] Nitroglycerin 0.4 mg 11/26/19 22:12 Nitrostat SUBLINGUAL Q5M PRN Chest Pain Senna 17.2 mg 11/26/19 23:35 Senokot PO Q72H PRN Constipation Intake and Output 11/26/19 11/27/19 11/27/19 22:59 06:59 14:59 Intake Total 10 Balance 10 Intake: IV 10 Invasive Line 1 10 Other: # Voids 1 Weight 63.503 kg 65 kg 11/26/19 20:13 11/26/19 20:13
[2019-11-27] MEDS ORDERED: ATORVASTATIN 10 MG TAB PO SCH (15:00)
[2019-11-28] MEDS ORDERED: LEVOTHYROXINE 25 MCG TAB PO SCH (06:30)
== END 2019-11-27 14:00 | disposition home or self-care (01) ==
LOC: EC 19:36 → 1SOBS 22:12
PROVIDERS: ADMIT Internal Medicine; ATTEND Internal Medicine
DX: R07.89 Other chest pain (principal); R06.00 Dyspnea, unspecified; I10 Essential (primary) hypertension; J45.20 Mild intermittent asthma, uncomplicated; K21.9 Gastro-esophageal reflux disease without esophagitis; E78.5 Hyperlipidemia, unspecified; E03.9 Hypothyroidism, unspecified; H35.30 Unspecified macular degeneration; I08.2 Rheumatic disorders of both aortic and tricuspid valves; Z79.51 Long term (current) use of inhaled steroids; Z79.890 Hormone replacement therapy; Z79.899 Other long term (current) drug therapy; Z88.8 Allergy status to other drugs, medicaments and biological substances; Z90.49 Acquired absence of other specified parts of digestive tract; Z90.89 Acquired absence of other organs
CPT/HCPCS: 93005 ×2; 96372; 99285; 36415; 94640 ×2; 93306; 83880; 80061; 80053; 83735; 84484 ×2; 85025; 85610; 85730; 71046; G0378 ×2; J1650

== ENCOUNTER 2022-02-07 21:18 | Emergency (ER) | payer MEDICARE, BC ==
--- NOTE | 2022-02-07 22:35 | XR ---
EXAMINATION TYPE: XR chest 2V DATE OF EXAM: 02/07/2022 COMPARISON: 11/26/2019 HISTORY: Chest pain TECHNIQUE: 2 views FINDINGS: Heart is normal. There is some blunting of the costophrenic angles. No heart failure. There are no hilar masses. Thoracic aorta is atheromatous. Thoracic spine is intact. IMPRESSION: Small pleural effusions. There is small hiatal hernia without change. No pulmonary consol idation or heart failure. No change compared to old exam.
--- NOTE | 2022-02-07 22:42 | ED ---
Fever HPI - General Chief Complaint: Upper Respiratory Infection Stated Complaint: Covid+,Headache,cough Time Seen by Provider: 02/07/22 22:24 Source: patient, RN notes reviewed, old records reviewed Mode of arrival: ambulatory Limitations: no limitations - History of Present Illness Initial Comments: This is an 86-year-old female to the emergency department for evaluation. Patient started feeling as well yesterday today as diagnosis coronavirus. Patient does have positive cough headache and congestion mild sore throat. No shortness of breath. No other significant complaints. Patient has medical history of asthma, hypothyroid MD Complaint: fever, malaise, weakness, other (Cough congestion) -: days(s) Temperature Source: subjective Context: sick contacts Associated Symptoms: chills, myalgias, nasal congestion, sore throat, cough, nausea Treatments Prior to Arrival: Acetaminophen - Related Data Home Medications Medication Instructions Recorded Confirmed Albuterol Sulfate [Proventil Hfa] 1 - 2 puff INHALATION RT-Q6H PRN 01/23/18 11/26/19 Levothyroxine Sodium [Synthroid] 25 mcg PO MOWETHFR 01/23/18 11/26/19 Rosuvastatin Calcium [Crestor] 5 mg PO DAILY@1500 01/23/18 11/26/19 Carboxymethylcellulose Sodium 1 drop BOTH EYES DAILY PRN 11/26/19 11/26/19 [Refresh Tears] Famotidine [Pepcid] 20 mg PO BID 11/26/19 11/26/19 Sennosides [Senna] 17.2 mg PO Q72H PRN 11/26/19 11/26/19 Vit C/E/Zn/Coppr/Lutein/Zeaxan 1 cap PO DAILY 11/26/19 11/26/19 [Preservision Areds 2 Softgel] Previous Rx's Medication Instructions Recorded Aspirin [Adult Low Dose Aspirin EC] 81 mg PO DAILY #30 tablet. 11/27/19 Allergies Allergy/AdvReac Type Severity Reaction Status Date / Time prednisone AdvReac Rapid Verified 11/26/19 22:33 Heart Rate Review of Systems ROS Statement: Those systems with pertinent positive or pertinent negative responses have been documented in the HPI. ROS Other: All systems not noted in ROS Statement are negative. Past Medical History Past Medical History: Asthma, GERD/Reflux, Hyperlipidemia, Thyroid Disorder Additional Past Medical History / Comment(s): colitis; macular degeneration History of Any Multi-Drug Resistant Organisms: None Reported Past Surgical History: Appendectomy, Cholecystectomy, Tonsillectomy Additional Past Surgical History / Comment(s): Colonoscopy Past Psychological History: No Psychological Hx Reported Smoking Status: Never smoker Past Alcohol Use History: None Reported Past Drug Use History: None Reported - Past Family History Mother Family Medical History: No Reported History General Exam General appearance: alert, in no apparent distress Head exam: Present: atraumatic, normocephalic, normal inspection Eye exam: Present: normal appearance, PERRL, EOMI. Absent: scleral icterus, conjunctival injection, periorbital swelling ENT exam: Present: normal exam, mucous membranes moist Neck exam: Present: normal inspection. Absent: tenderness, meningismus, lymphadenopathy Respiratory exam: Present: normal lung sounds bilaterally. Absent: respiratory distress, wheezes, rales, rhonchi, stridor Cardiovascular Exam: Present: regular rate, normal rhythm, normal heart sounds. Absent: systolic murmur, diastolic murmur, rubs, gallop, clicks GI/Abdominal exam: Present: soft, normal bowel sounds. Absent: distended, tenderness, guarding, rebound, rigid Extremities exam: Present: normal inspection, full ROM, normal capillary refill. Absent: tenderness, pedal edema, joint swelling, calf tenderness Back exam: Present: normal inspection Neurological exam: Present: alert, oriented X3, CN II-XII intact Psychiatric exam: Present: normal affect, normal mood Skin exam: Present: warm, dry, intact, normal color. Absent: rash Course Vital Signs 02/07/22 22:04 Temperature 98.6 F Pulse Rate 55 L Respiratory 17 Rate Blood Pressure 134/72 O2 Sat by Pulse 96 Oximetry - Reevaluation(s) Reevaluation #1: 02/07/22 22:41 Medical records reviewed Reevaluation #2: 02/07/22 22:41 Patient requesting antibody treatment 02/07/22 23:41 Patient given antibody treatment with no side effects Reevaluation #3: 02/07/22 23:41 seen and evaluated again, feeling well, no shortness of breath. Patient can be discharged home Medical Decision Making - Medical Decision Making 86 female positive coronavirus, did receive anti-body treatment here in the ER and can be discharged home - Lab Data Lab Results 02/07/22 Range/Units 22:11 Coronavirus (PCR) Detected A (Not Detectd) - Radiology Data Radiology results: report reviewed (Chest x-rays no significant acute disease), image reviewed Disposition Clinical Impression: Coronavirus infection Disposition: HOME SELF-CARE Condition: Good Instructions (If sedation given, give patient instructions): Coronavirus Disease 2019 (COVID-19) Is patient prescribed a controlled substance at d/c from ED?: No Referrals: Dayanna Ray MD [Primary Care Provider] - 1-2 days
[2022-02-07] MEDS ORDERED: BEBTELOVIMAB (EUA) 175 MG/2 ML VIAL IV ONE (23:00)
[2022-02-07 23:54] VITALS: BP 134/70; PULSE 83; RESP 18; TEMP 99.1
== END 2022-02-08 01:00 | disposition home or self-care (01) ==
LOC: EC 21:18
DX: U07.1 COVID-19 (principal); J45.909 Unspecified asthma, uncomplicated; E78.5 Hyperlipidemia, unspecified; E03.9 Hypothyroidism, unspecified; K21.9 Gastro-esophageal reflux disease without esophagitis; Z79.82 Long term (current) use of aspirin; Z79.890 Hormone replacement therapy; Z79.51 Long term (current) use of inhaled steroids; Z79.899 Other long term (current) drug therapy
CPT/HCPCS: 71046; 87635; 99285

== ENCOUNTER → 2023-05-04 | Outpatient (CLI) | payer MEDICARE, BC ==
[2023-05-04 14:57] LABS: HCT 38.6 % (37.2-46.3); HGB 12.1 d/dL (12.0-15.0); MCH 30.6 pg (27.0-32.0); MCHC 31.3 d/dL (32.0-37.0); MCV 97.7 FL (80.0-97.0); Mean Platelet Volume 10.3 FL (9.5-12.2); NRBC Per 100 WBC 0 X 10*3/uL (0.00-0.01); Platelet Count 242 X 10*3/uL (140-440); RBC 3.95 X 10*6/uL (4.10-5.20); RDW 14.3 % (11.5-14.5); WBC 7.28 X 10*3/uL (4.50-10.00)
[2023-05-04 16:27] LABS: Blood Urea Nitrogen 11.7 mg/dL (9.0-27.0); Calcium 9.8 mg/dL (8.7-10.3); Carbon Dioxide 25.6 mmol/L (21.6-31.8); Chloride 106 mmol/L (96-109); Glucose 112 mg/dL (70-110); Potassium 4.6 mmol/L (3.5-5.5); Sodium 143 mmol/L (135-145)
== END | disposition home or self-care (01) ==
LOC: LABWHC1 09:46
PROVIDERS: ATTEND Student in an Organized Health Care Education/Training Program
DX: I10 Essential (primary) hypertension (principal); I49.1 Atrial premature depolarization; I49.9 Cardiac arrhythmia, unspecified
CPT/HCPCS: 36415; 80048; 84443; 85027

== ENCOUNTER → 2023-05-11 | Outpatient (CLI) | payer MEDICARE, BC ==
--- NOTE | 2023-05-11 23:00 | US ---
EXAMINATION TYPE: US venous doppler duplex LE LT DATE OF EXAM: 05/11/2023 9:21 AM COMPARISON: NONE CLINICAL INDICATION: Female, 87 years old with history of LLE M79.89 OTHER SPECIFIED SOFT TISSUE DISO RDERS; edema left leg SIDE PERFORMED: Left TECHNIQUE: The lower extremity deep venous system is examined utilizing real time linear array sonog melissa with graded compression, doppler sonography and color-flow sonography. VESSELS IMAGED: Common Femoral Vein Deep Femoral Vein Greater Saphenous Vein * Femoral Vein Popliteal Vein Small Saphenous Vein * Proximal Calf Veins (* superficial vessels) Left Leg: Negative for DVT. Bakers cyst seen 5.0 x 1.5 x 3.9 cm. IMPRESSION: 1. Left lower extremity ultrasound negative for deep venous thrombosis. 2. Left popliteal cyst
== END | disposition home or self-care (01) ==
LOC: RADUSWWP 09:02
PROVIDERS: ATTEND Family Medicine
DX: M71.22 Synovial cyst of popliteal space [Baker], left knee (principal); M79.89 Other specified soft tissue disorders

== ENCOUNTER 2023-05-15 10:40 | Emergency (ER) | payer MEDICARE, BC ==
[2023-05-15 10:54] VITALS: RESP 18; TEMP 98
[2023-05-15] MEDS ORDERED: ACETAMINOPHEN TAB 500 MG TAB PO STA (11:34)
--- NOTE | 2023-05-15 11:36 | ED ---
General Adult HPI - General Chief complaint: Extremity Injury, Lower Stated complaint: Pain in Legs/Arms Time Seen by Provider: 05/15/23 11:09 Source: patient, family Mode of arrival: wheelchair Limitations: no limitations - History of Present Illness Initial comments: 87-year-old female with past medical history significant for chronic kidney disease presents to ED with a chief complaint of arthralgias. Patient states for the past 3 weeks has had pain and subjective swelling of the left knee. States had 2 ultrasounds that were negative for DVT. States over the past week pain has increased in severity and notes that she is now starting to experience pain and stiffness of the right knee, right arm, and left wrist over the past week. Due to history of chronic kidney disease states that she is unable to use NSAIDs and has only been using 1 Tylenol a day. Denies any recent injury or trauma to the affected areas of pain. Denies chest pain or shortness of breath. - Related Data Home Medications Medication Instructions Recorded Confirmed Albuterol Sulfate [Proventil Hfa] 1 - 2 puff INHALATION RT-Q6H PRN 01/23/18 11/26/19 Levothyroxine Sodium [Synthroid] 25 mcg PO MOWETHFR 01/23/18 11/26/19 Rosuvastatin Calcium [Crestor] 5 mg PO DAILY@1500 01/23/18 11/26/19 Carboxymethylcellulose Sodium 1 drop BOTH EYES DAILY PRN 11/26/19 11/26/19 [Refresh Tears] Famotidine [Pepcid] 20 mg PO BID 11/26/19 11/26/19 Sennosides [Senna] 17.2 mg PO Q72H PRN 11/26/19 11/26/19 Vit C/E/Zn/Coppr/Lutein/Zeaxan 1 cap PO DAILY 11/26/19 11/26/19 [Preservision Areds 2 Softgel] Previous Rx's Medication Instructions Recorded Aspirin [Adult Low Dose Aspirin EC] 81 mg PO DAILY #30 tablet. 11/27/19 Allergies Allergy/AdvReac Type Severity Reaction Status Date / Time prednisone AdvReac Rapid Verified 05/15/23 10:54 Heart Rate Review of Systems ROS Statement: Those systems with pertinent positive or pertinent negative responses have been documented in the HPI. ROS Other: All systems not noted in ROS Statement are negative. Past Medical History Past Medical History: Asthma, GERD/Reflux, Hyperlipidemia, Thyroid Disorder Additional Past Medical History / Comment(s): colitis; macular degeneration History of Any Multi-Drug Resistant Organisms: None Reported Past Surgical History: Appendectomy, Cholecystectomy, Tonsillectomy Additional Past Surgical History / Comment(s): Colonoscopy Past Psychological History: No Psychological Hx Reported Smoking Status: Never smoker Past Alcohol Use History: None Reported Past Drug Use History: None Reported - Past Family History Mother Family Medical History: No Reported History General Exam Limitations: no limitations General appearance: alert, in no apparent distress Eye exam: Present: normal appearance Neck exam: Present: normal inspection Respiratory exam: Present: normal lung sounds bilaterally Cardiovascular Exam: Present: regular rate, normal rhythm GI/Abdominal exam: Present: soft Extremities exam: Present: other (Full active range of motion of bilateral upper and lower extremities. Strength and sensation intact of bilateral upper and lower extremity. Radial pulses 2+. DP/PT pulses 2+.) Skin exam: Present: warm, dry Course Vital Signs 05/15/23 05/15/23 10:49 12:44 Temperature 98.0 F Pulse Rate 91 74 Respiratory 18 18 Rate Blood Pressure 148/82 144/77 O2 Sat by Pulse 97 96 Oximetry Medical Decision Making - Medical Decision Making Was pt. sent in by a medical professional or institution (, PA, LOAN PROCESSOR, urgent care, hospital, or halfway...) When possible be specific @ -No Did you speak to anyone other than the patient for history (EMS, parent, family, police, friend...)? What history was obtained from this source @ -No Did you review nursing and triage notes (agree or disagree)? Why? @ -I reviewed and agree with nursing and triage notes Were old charts reviewed (outside hosp., previous admission, EMS record, old EKG, old radiological studies, urgent care reports/EKG's, halfway records)? Report findings @ -No old charts were reviewed Differential Diagnosis (chest pain, altered mental status, abdominal pain women, abdominal pain men, vaginal bleeding, weakness, fever, dyspnea, syncope, headache, dizziness, GI bleed, back pain, seizure, CVA, palpatations, mental health, musculoskeletal)? @ -Differential Musculoskeletal Muscular strain, contusion, ligament sprain, fracture, arthritis, septic arthritis, bursitis, cellulitis, muscle spasm, nerve compression, DVT, arterial occlusion, herpes zoster, electrolyte abnormality, tumor.... This is not meant to be in all inclusive list EKG interpreted by me (3pts min.). @ -None X-rays interpreted by me (1pt min.). @ -X-rays interpreted by me. X-ray of the bilateral knees, humerus, and wrist show no acute findings. CT interpreted by me (1pt min.). @ -None done U/S interpreted by me (1pt. min.). @ -None done What testing was considered but not performed or refused? (CT, X-rays, U/S, labs)? Why? @ -None What meds were considered but not given or refused? Why? @ -None Did you discuss the management of the patient with other professionals (professionals i.e. , PA, LOAN PROCESSOR, lab, RT, psych nurse, rn social services, spare parts clerk, teacher, air antisubmarine officer, family service caseworker)? Give summary @ -No Was smoking cessation discussed for >3mins.? @ -No Was critical care preformed (if so, how long)? @ -No Were there social determinants of health that impacted care today? How? (Homelessness, low income, unemployed, alcoholism, drug addiction, transportation, low edu. Level, literacy, decrease access to med. care, nursing home, rehab)? @ -No Was there de-escalation of care discussed even if they declined (Discuss DNR or withdrawal of care, Hospice)? DNR status @ -No What co-morbidities impacted this encounter? (DM, HTN, Smoking, COPD, CAD, Cancer, CVA, ARF, Chemo, Hep., AIDS, mental health diagnosis, sleep apnea, morbid obesity)? @ -None Was patient admitted / discharged? Hospital course, mention meds given and route, prescriptions, significant lab abnormalities, going to OR and other pertinent info. @ -Discharge. Imaging studies reveal no acute findings. Blood work reveals CRP mildly elevated at 2.7 otherwise unremarkable. Patient had improvement of pain with Tylenol here. Advised increasing Tylenol use at home and follow-up with PCP. Discharged home in stable condition. Discussed return precautions with patient who verbalizes agreement. Undiagnosed new problem with uncertain prognosis? @ -No Drug Therapy requiring intensive monitoring for toxicity (Heparin, Nitro, Insulin, Cardizem)? @ -No Were any procedures done? @ -No Diagnosis/symptom? @ -Arthralgias Acute, or Chronic, or Acute on Chronic? @ -Acute on chronic Uncomplicated (without systemic symptoms) or Complicated (systemic symptoms)? @ -Uncomplicated Side effects of treatment? @ -No Exacerbation, Progression, or Severe Exacerbation? @ -No Poses a threat to life or bodily function? How? (Chest pain, USA, CA, pneumonia, PE, COPD, DKA, ARF, appy, cholecystitis, CVA, Diverticulitis, Homicidal, Suicidal, threat to staff... and all critical care pts) @ -No - Lab Data Result diagrams: 05/15/23 11:43 05/15/23 11:43 Lab Results 05/15/23 05/15/23 Range/Units 11:43 11:43 WBC 8.3 (3.8-10.6) k/uL RBC 3.70 L (3.80-5.40) m/uL Hgb 12.2 (11.4-16.0) gm/dL Hct 35.2 (34.0-46.0) % MCV 95.2 (80.0-100.0) fL MCH 33.0 (25.0-35.0) pg MCHC 34.6 (31.0-37.0) g/dL RDW 14.6 (11.5-15.5) % Plt Count 205 (150-450) k/uL MPV 7.6 Neutrophils % 78 % Lymphocytes % 12 % Monocytes % 7 % Eosinophils % 3 % Basophils % 0 % Neutrophils # 6.4 (1.3-7.7) k/uL Lymphocytes # 1.0 (1.0-4.8) k/uL Monocytes # 0.5 (0-1.0) k/uL Eosinophils # 0.2 (0-0.7) k/uL Basophils # 0.0 (0-0.2) k/uL ESR Cancelled Sodium 138 (137-145) mmol/L Potassium 4.5 (3.5-5.1) mmol/L Chloride 107 (98-107) mmol/L Carbon Dioxide 23 (22-30) mmol/L Anion Gap 8 mmol/L BUN 13 (7-17) mg/dL Creatinine 0.68 (0.52-1.04) mg/dL Est GFR (CKD-EPI)AfAm >90 (>60 ml/min/1.73 sqM) Est GFR (CKD-EPI)NonAf 78 (>60 ml/min/1.73 sqM) Glucose 121 H (74-99) mg/dL Calcium 9.2 (8.4-10.2) mg/dL Total Bilirubin 0.5 (0.2-1.3) mg/dL AST 22 (14-36) U/L ALT 13 (4-34) U/L Alkaline Phosphatase 93 (38-126) U/L C-Reactive Protein 2.7 H (<1.0) mg/dL Total Protein 6.4 (6.3-8.2) g/dL Albumin 3.5 (3.5-5.0) g/dL Disposition Clinical Impression: Arthralgia Disposition: HOME SELF-CARE Condition: Good Instructions (If sedation given, give patient instructions): Arthralgia (ED) Additional Instructions: Please return to the Emergency Department if symptoms worsen or any other concerns. Is patient prescribed a controlled substance at d/c from ED?: No Referrals: Quintin Priest MD [Primary Care Provider] - 1-2 days Time of Disposition: 12:58
[2023-05-15 11:58] LABS: Basophils % (A) 0 %; Eosinophils # (A) 0.2 k/uL (0-0.7); Eosinophils % (A) 3 %; HCT 35.2 % (34.0-46.0); HGB 12.2 gm/dL (11.4-16.0); Lymphocytes % (A) 12 %; MCHC 34.6 g/dL (31.0-37.0); MCV 95.2 fL (80.0-100.0); Mean Platelet Volume 7.6; Monocytes # (A) 0.5 k/uL (0-1.0); Monocytes % (A) 7 %; Neutrophils # (A) 6.4 k/uL (1.3-7.7); Neutrophils % (A) 78 %; Platelet Count 205 k/uL (150-450); RDW 14.6 % (11.5-15.5); WBC 8.3 k/uL (3.8-10.6)
[2023-05-15 12:19] LABS: ALT 13 U/L (4-34); AST 22 U/L (14-36); African American GFR (CKD) >90 (>60 ml/min/1.73 sqM); Albumin 3.5 g/dL (3.5-5.0); Alkaline Phosphatase 93 U/L (38-126); Anion Gap 8 mmol/L; Blood Urea Nitrogen 13 mg/dL (7-17); C Reactive Protein 2.7 mg/dL (<1.0); Calcium 9.2 mg/dL (8.4-10.2); Carbon Dioxide 23 mmol/L (22-30); Chloride 107 mmol/L (98-107); Glucose 121 mg/dL (74-99); Non-African American GFR(CKD) 78 (>60 ml/min/1.73 sqM); Potassium 4.5 mmol/L (3.5-5.1); Sodium 138 mmol/L (137-145); Total Bilirubin 0.5 mg/dL (0.2-1.3); Total Protein 6.4 g/dL (6.3-8.2)
--- NOTE | 2023-05-15 12:23 | XR ---
EXAMINATION TYPE: XR humerus RT DATE OF EXAM: 05/15/2023 CLINICAL HISTORY: pain COMPARISON: NONE TECHNIQUE: Frontal and lateral images of the right humerus are obtained. FINDINGS: There is no acute fracture/dislocation evident. The joint spaces appear within normal limi ts. The overlying soft tissue appears unremarkable. IMPRESSION: There is no acute fracture or dislocation.ICD 10 NO FRACTURE, INITIAL EVALUATION
--- NOTE | 2023-05-15 12:23 | XR ---
EXAMINATION TYPE: XR wrist complete LT DATE OF EXAM: 05/15/2023 CLINICAL HISTORY: pain TECHNIQUE: Frontal, lateral and oblique images of the left wrist are obtained. COMPARISON: None. FINDINGS: There is no acute fracture/dislocation evident. The joint spaces appear within normal miranda its. The overlying soft tissue appears unremarkable. IMPRESSION: There is no acute fracture or dislocation seen. ICD 10 NO FRACTURE, INITIAL EVALUATION
--- NOTE | 2023-05-15 12:24 | XR ---
EXAMINATION TYPE: XR knee complete bilateral DATE OF EXAM: 05/15/2023 CLINICAL HISTORY: pain TECHNIQUE: Three views of the bilateral knees are obtained. COMPARISON: None. FINDINGS: There is no acute fracture/dislocation. The tri-compartment joint spaces appear within no rmal limits. The overlying soft tissue appears unremarkable. IMPRESSION: There is no acute fracture or dislocation.ICD 10 NO FRACTURE, INITIAL EVALUATION
[2023-05-15 12:46] VITALS: BP 144/77; PULSE 74
== END 2023-05-15 13:25 | disposition home or self-care (01) ==
LOC: EC 10:40
DX: M25.50 Pain in unspecified joint (principal); J45.909 Unspecified asthma, uncomplicated; E78.5 Hyperlipidemia, unspecified; E07.9 Disorder of thyroid, unspecified; Z79.890 Hormone replacement therapy; Z79.899 Other long term (current) drug therapy; Z88.6 Allergy status to analgesic agent; Z90.49 Acquired absence of other specified parts of digestive tract; Z88.8 Allergy status to other drugs, medicaments and biological substances
CPT/HCPCS: 36415; 80053; 85025; 85652; 86140; 99284

== ENCOUNTER → 2023-06-01 | Outpatient (CLI) | payer MEDICARE, BC ==
[2023-06-01 20:25] LABS: Creatine Kinase 30 U/L (26-186); Rheumatoid Factor, Qnt <15 IU/mL (0-15)
== END | disposition home or self-care (01) ==
LOC: LABWHC1 13:46
PROVIDERS: ATTEND Family Medicine
DX: M13.0 Polyarthritis, unspecified (principal); M25.50 Pain in unspecified joint
CPT/HCPCS: 36415; 82550; 85652; 86038; 86140; 86431

== ENCOUNTER → 2023-09-15 | Outpatient (CLI) | payer MEDICARE, BC ==
--- NOTE | 2023-09-15 17:48 | XR ---
EXAMINATION TYPE: XR hand complete LT DATE OF EXAM: 09/15/2023 4:18 PM CLINICAL INDICATION:Female, 88 years old with history of J18.9; COMPARISON: None TECHNIQUE: XR hand complete LT Frontal, lateral and oblique views were obtained. FINDINGS: Normal alignment of the visualized joints. No acute osseous pathology is identified. No e vidence of soft tissue swelling. Multifocal joint space narrowing and osteophyte formation. Findings are worse at the interphalangeal joints and specifically the fifth distal interphalangeal joint. IMPRESSION: 1. No acute osseous pathology. 2. 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
--- NOTE | 2023-09-15 17:52 | XR ---
EXAMINATION TYPE: XR spine complete AP and Lat DATE OF EXAM: 09/15/2023 4:18 PM CLINICAL INDICATION:Female, 88 years old with history of M54.32,M79.643; [facility] COMPARISON: None TECHNIQUE: XR spine complete AP and Lat views of the spine in Frontal and lateral projections. FINDINGS: There is scattered multilevel disk space narrowing with wedging of multiple vertebral bodies of the u pper thoracic spine. Overlapping sites structures limits evaluation for acute fracture. There is scoliotic alignment of the vertebral bodies. Scattered osteophyte formation along the anteri or and lateral aspects of the vertebral bodies. Neural foramen are patent given limitations of this e xam. Spinal canal appears grossly patent. Severe atherosclerosis of the arterial vasculature. Retroli sthesis of L1 on L2. IMPRESSION: 1. Wedging of the mid thoracic spine which could be more thoroughly evaluated if there is concern fo r acute fracture with MRI or CT. 2. Moderate degeneration changes throughout the spine.
== END | disposition home or self-care (01) ==
LOC: RADXRMAIN 15:45
PROVIDERS: ATTEND Family Medicine
DX: M19.042 Primary osteoarthritis, left hand (principal); J18.9 Pneumonia, unspecified organism; M48.54XA Collapsed vertebra, not elsewhere classified, thoracic region, initial encounter for fracture; M51.14 Intervertebral disc disorders with radiculopathy, thoracic region
CPT/HCPCS: 72082

== ENCOUNTER → 2023-09-22 | Outpatient (CLI) | payer MEDICARE, BC ==
--- NOTE | 2023-09-22 23:26 | MR ---
EXAMINATION TYPE: MR thoracic spine wo con DATE OF EXAM: 09/22/2023 COMPARISON: HISTORY: Mid back pain for 2 years, trip and fall injury. CONTRAST: Performed utilizing mL intravenous gadolinium contrast. TECHNIQUE: Multiplanar, multiecho imaging on a 3.0 Una magnet is performed through the thoracic spi ne. Spinal cord maintains normal signal through its visualized course. Vertebral body alignment is normal. There is a superior endplate compression deformity at T8. No posterior wall displacement is evident. Mild diffuse increased signals within this vertebral level suggesting this is an acute fracture. Disc heights are preserved. Disc hydration levels are preserved. No spinal canal stenosis is evident. IMPRESSION: 1. Compression deformity T8 with approximately 25% loss of anterior vertebral body height. Some edema is present suggesting portion of this is acute.
== END | disposition home or self-care (01) ==
LOC: RADMRIMAIN 10:18
PROVIDERS: ATTEND Family Medicine
DX: M48.54XA Collapsed vertebra, not elsewhere classified, thoracic region, initial encounter for fracture (principal); M19.90 Unspecified osteoarthritis, unspecified site; M54.50 Low back pain, unspecified
CPT/HCPCS: 72146

== ENCOUNTER → 2023-12-21 | Outpatient (CLI) | payer MEDICARE, BC ==
[2023-12-21 18:50] LABS: HCT 37.9 % (37.2-46.3); HGB 11.8 g/dL (12.0-15.0); MCH 29.3 pg (27.0-32.0); MCHC 31.1 g/dL (32.0-37.0); Mean Platelet Volume 9.8 FL (9.5-12.2); NRBC Per 100 WBC 0 X 10*3/uL (0.00-0.01); Platelet Count 210 X 10*3/uL (140-440); RBC 4.03 X 10*6/uL (4.10-5.20); WBC 7.15 X 10*3/uL (4.50-10.00)
[2023-12-21 19:45] LABS: ALT 17 U/L (8-44); AST 10 U/L (13-35); Albumin 4.1 g/dL (3.8-4.9); Albumin/Globulin Ratio 1.86 Ratio (1.60-3.17); Alkaline Phosphatase 92 U/L (41-126); Blood Urea Nitrogen 21.4 mg/dL (9.0-27.0); Calcium 9.4 mg/dL (8.7-10.3); Carbon Dioxide 24.1 mmol/L (21.6-31.8); Chloride 109 mmol/L (96-109); Globulin 2.2 g/dL (1.6-3.3); Glucose 121 mg/dL (70-110); Magnesium 2.4 mg/dL (1.5-2.4); NT-Pro-B-Type Natriuretic Pept 1280 pg/mL (0-450); Potassium 4.7 mmol/L (3.5-5.5); Sodium 144 mmol/L (135-145); Total Bilirubin 0.3 mg/dL (0.3-1.2); Total Protein 6.3 g/dL (6.2-8.2)
== END | disposition home or self-care (01) ==
LOC: LABWHC1 15:21
PROVIDERS: ATTEND Student in an Organized Health Care Education/Training Program
DX: E03.9 Hypothyroidism, unspecified (principal); E11.22 Type 2 diabetes mellitus with diabetic chronic kidney disease; N18.9 Chronic kidney disease, unspecified; D63.1 Anemia in chronic kidney disease
CPT/HCPCS: 36415; 80053; 83036; 83735; 83880; 84443; 85027

== ENCOUNTER → 2024-03-06 | Outpatient (CLI) | payer MEDICARE, BC ==
--- NOTE | 2024-03-13 15:36 | BD ---
EXAMINATION TYPE: Axial Bone Density DATE OF EXAM: 03/06/2024 CLINICAL HISTORY: 88 years old Female. ICD-10 CODE: Z78.0 ASYMPTOMATIC MENOPAUSAL STATE Height: 58 in Weight: 131 in MEDICATIONS: Thyroid Medications: Which medication: Levothyroxine How Lon+ years EXAM MEASUREMENTS: Bone mineral densitometry was performed using the [employer] System. Bone mineral density as measured about the Lumbar spine is: ----- L1-L4(G/cm2): 0.935 T Score Values are as follows: ----- L1: -3.0 ----- L2: -2.0 ----- L3: -2.3 ----- L4: -1.2 ----- L1-L4: -2.0 Z Score Values are as follows: ----- L1: -0.8 ----- L2: 0.1 ----- L3: -0.1 ----- L4: 0.9 ----- L1-L4: 0.1 Bone mineral density has: Increased 10.1% since study of: 04/04/2013 Bone mineral density about the R hip (g/cm2): 0.709 Bone mineral density about the L hip (g/cm2): 0.724 T Score values are as follows: -----R Neck: -2.5 -----L Neck: -3.0 -----R Total: -2.4 -----L Total: -2.3 Z Score values are as follows: -----R Neck: 0.2 -----L Neck: -0.3 -----R Total: 0.3 -----L Total: 0.4 Bone mineral density has: Decreased -13.5% since study of: 04/04/2013 Bone mineral density about the R Wrist (g/cm2): FRAX%s: The graph provided illustrates a 18.8% chance for a major osteoporotic fx and a 7.4% chance f or the hips probability for fx in 10 years time. IMPRESSION: Osteoporosis (T Score less than -2.5). There is increased fracture risk and therapy is usually indicated based on age. Re-Screen 1-2 years. NOTE: T-SCORE=SD OF THE YOUNG ADULT MEAN.
== END | disposition home or self-care (01) ==
LOC: RADBDWWP 15:53
PROVIDERS: ATTEND Internal Medicine Rheumatology
DX: Z13.820 Encounter for screening for osteoporosis (principal); M81.0 Age-related osteoporosis without current pathological fracture; M85.89 Other specified disorders of bone density and structure, multiple sites; Z78.0 Asymptomatic menopausal state
CPT/HCPCS: 77080

== ENCOUNTER → 2024-07-04 | Outpatient (CLI) | payer MEDICARE, BC ==
[2024-07-04 18:50] LABS: HCT 34.1 % (37.2-46.3); HGB 10.8 g/dL (12.0-15.0); MCH 30.5 pg (27.0-32.0); MCHC 31.7 g/dL (32.0-37.0); MCV 96.3 FL (80.0-97.0); Mean Platelet Volume 9.8 FL (9.5-12.2); NRBC Per 100 WBC 0 X 10*3/uL (0.00-0.01); Platelet Count 304 X 10*3/uL (140-440); RBC 3.54 X 10*6/uL (4.10-5.20); RDW 16.1 % (11.5-14.5); WBC 9.06 X 10*3/uL (4.50-10.00)
[2024-07-04 23:26] LABS: NT-Pro-B-Type Natriuretic Pept 1250 pg/mL (0-450)
[2024-07-04 23:38] LABS: ALT 6 U/L (8-44); AST 12 U/L (13-35); Albumin 3.7 g/dL (3.8-4.9); Albumin/Globulin Ratio 1.23 Ratio (1.60-3.17); Alkaline Phosphatase 97 U/L (41-126); BUN/Creat Ratio 16.54 Ratio (12.00-20.00); Blood Urea Nitrogen 21.5 mg/dL (9.0-27.0); Calcium 9.4 mg/dL (8.7-10.3); Carbon Dioxide 21.8 mmol/L (21.6-31.8); Chloride 100 mmol/L (96-109); Glucose 123 mg/dL (70-110); Potassium 5.1 mmol/L (3.5-5.5); Sodium 136 mmol/L (135-145); Total Bilirubin 0.4 mg/dL (0.3-1.2); Total Protein 6.7 g/dL (6.2-8.2)
== END | disposition home or self-care (01) ==
LOC: LABWHC1 13:22
PROVIDERS: ATTEND Student in an Organized Health Care Education/Training Program
CPT/HCPCS: 36415; 80053; 83036; 83880; 84443; 85027